=== PATIENT | male | born 1985 | race Caucasian/White ===

== ENCOUNTER 2020-10-16 16:55 | Emergency (ER) | payer MEDICAID ==
[2020-10-16] MEDS ORDERED: Sodium Chloride 0.9% 10 ML Syringe FLUSH PRN (17:21)
--- NOTE | 2020-10-16 17:48 | EDM.PDOCBH ---
ED HPI GENERAL MEDICAL PROBLEM - General Chief Complaint: Behavioral/Psych Stated Complaint: ANXIETY Time Seen by Provider: 10/16/20 17:01 Source of Information: Reports: Patient, RN Notes Reviewed History Limitations: Reports: No Limitations ( ) - History of Present Illness INITIAL COMMENTS - FREE TEXT/NARRATIVE: Patient is a 35-year-old male presenting to the emergency department for medical clearance to go to the [facility]. Patient mitts to a long history of drinking since age 10. States he drinks 18 beers and 3 shots daily. His last drink of 1 beer and 1 shot was about 4 hours ago. States is the only alcohol he is consumed today. Patient also has a history of methamphetamine and marijuana use. He last used marijuana yesterday and methamphetamine 2 days ago. He recently moved here from [place]. [facility] he has detoxed before but has never undergone treatment. He reports that he had a seizure 2 years ago when detoxing without medications. - Related Data Allergies Allergy/AdvReac Type Severity Reaction Status Date / Time bee pollen Allergy Severe Anaphylactic Verified 10/16/20 17:12 Shock Penicillins Allergy Severe Anaphylactic Verified 10/16/20 17:12 Shock Home Meds: Home Meds Fexofenadine [Evelia] 180 mg PO DAILY 10/16/20 [History] Fluticasone Propionate [Flonase Allergy Relief] 1 spray INH BID 10/16/20 [History] Omeprazole 20 mg PO DAILY 10/16/20 [History] clonazePAM [Clonazepam] 1 mg PO TID PRN 10/16/20 [History] Past Medical History Respiratory History: Reports: Other (See Below) Other Respiratory History: seasonal allergies Psychiatric History: Reports: Anxiety, Depression - Infectious Disease History Infectious Disease History: Reports: Hepatitis C Social & Family History - Tobacco Use Tobacco Use Status *Q: Never Tobacco User - Caffeine Use Caffeine Use: Reports: Coffee - Recreational Drug Use Recreational Drug Use: Yes Recreational Drug Type: Reports: Marijuana/Hashish, Methamphetamine ED ROS GENERAL - Review of Systems Review Of Systems: See Below Constitutional: Reports: No Symptoms HEENT: Reports: No Symptoms Respiratory: Reports: No Symptoms Cardiovascular: Reports: No Symptoms Endocrine: Reports: No Symptoms GI/Abdominal: Reports: No Symptoms : Reports: No Symptoms Musculoskeletal: Reports: No Symptoms Skin: Reports: No Symptoms Neurological: Reports: No Symptoms Psychiatric: Reports: Anxiety, Cravings Hematologic/Lymphatic: Reports: No Symptoms Immunologic: Reports: No Symptoms ED EXAM, BEHAVIORAL HEALTH - Physical Exam Exam: See Below General Appearance: Alert, WD/WN, No Apparent Distress Respiratory/Chest: No Respiratory Distress, Lungs Clear, Normal Breath Sounds, No Accessory Muscle Use, Chest Non-Tender Cardiovascular: Normal Peripheral Pulses, Regular Rate, Rhythm, No Edema, No Gallop, No JVD, No Murmur, No Rub GI/Abdominal: Normal Bowel Sounds, Soft, Non-Tender, No Organomegaly, No Distention, No Abnormal Bruit, No Mass Neurological: Alert, Normal Mood/Affect, CN II-XII Intact, Normal Cognition, Normal Gait, Normal Reflexes, No Motor/Sensory Deficits, Oriented x 3 Psychiatric: Alert, Normal Affect, Normal Cognition, Normal Mood, Oriented Skin Exam: Warm, Dry, Intact, Normal color, No rash COURSE, BEHAVIORAL HEALTH COMP - Course Vital Signs: Last Vital Signs Temp 96.5 F L 10/16/20 17:03 Pulse 95 10/16/20 17:03 Resp 20 10/16/20 17:03 BP 145/95 H 10/16/20 17:03 Pulse Ox 97 10/16/20 17:03 Orders, Labs, Meds: Laboratory Tests 10/16/20 10/16/20 10/16/20 Range/Units 17:23 17:36 17:36 WBC 6.37 (4.23-9.07) K/mm3 RBC 5.04 (4.63-6.08) M/mm3 Hgb 14.4 (13.7-17.5) gm/dl Hct 43.8 (40.1-51.0) % MCV 86.9 (79.0-92.2) fl MCH 28.6 (25.7-32.2) pg MCHC 32.9 (32.2-35.5) g/dl RDW Std Deviation 43.8 (35.1-43.9) fL Plt Count 243 (163-337) K/mm3 MPV 8.7 L (9.4-12.3) fl Neut % (Auto) 60.4 (34.0-67.9) % Lymph % (Auto) 27.8 (21.8-53.1) % Tyrrell % (Auto) 8.5 (5.3-12.2) % Eos % (Auto) 2.8 (0.8-7.0) Baso % (Auto) 0.3 (0.1-1.2) % Neut # (Auto) 3.85 (1.78-5.38) K/mm3 Lymph # (Auto) 1.77 (1.32-3.57) K/mm3 Tyrrell # (Auto) 0.54 (0.30-0.82) K/mm3 Eos # (Auto) 0.18 (0.04-0.54) K/mm3 Baso # (Auto) 0.02 (0.01-0.08) K/mm3 Sodium 139 (136-145) mEq/L Potassium 4.1 (3.5-5.1) mEq/L Chloride 103 (98-107) mEq/L Carbon Dioxide 26 (21-32) mEq/L Anion Gap 14.1 (5-15) BUN 10 (7-18) mg/dL Creatinine 1.0 (0.7-1.3) mg/dL Est Cr Clr Drug Dosing TNP Estimated GFR (MDRD) > 60 (>60) mL/min BUN/Creatinine Ratio 10.0 L (14-18) Glucose 98 (74-106) mg/dL Calcium 9.1 (8.5-10.1) mg/dL Total Bilirubin 0.5 (0.2-1.0) mg/dL AST 82 H (15-37) U/L ALT 146 H (16-63) U/L Alkaline Phosphatase 64 (46-116) U/L Troponin I < 0.017 (0.00-0.056) ng/mL C-Reactive Protein < 0.2 (<1.0) mg/dL Total Protein 7.9 (6.4-8.2) g/dl Albumin 4.1 (3.4-5.0) g/dl Globulin 3.8 gm/dL Albumin/Globulin Ratio 1.1 (1-2) Urine Opiates Screen Negative (YUWJNL=129) Ur Buprenorphine Scrn Negative (CUTOFF=10) Ur Oxycodone Screen Negative (OSL2OK=727) Urine Methadone Screen Negative (ZRO4NJ=091) Ur Propoxyphene Screen Negative (YZHPGS=033) Ur Barbiturates Screen Negative (VEWECK=570) Ur Tricyclics Screen Negative (DCOYMW=160) Ur Phencyclidine Scrn Negative (CUTOFF=25) Ur Amphetamine Screen Negative (RFRRPJ=172) U Methamphetamines Scrn Presumptive positive H (GNHAEE=764) U Benzodiazepines Scrn Negative (JGFTNP=399) U Cocaine Metab Screen Negative (CTFILH=071) U Marijuana (THC) Screen Presumptive positive H (CUTOFF=50) Ethyl Alcohol 0.18 (0.00) gm% Medications Discontinued Medications Generic Name Dose Route Start Last Admin Trade Name Freq PRN Reason Stop Dose Admin Sodium Chloride 10 ml 10/16/20 17:21 Saline Flush FLUSH ASDIRECTED PRN Keep Vein Open Medical Clearance: 10/16/20 18:26 Hematology was significant for blood alcohol elevated at 0.18, AST 82, ALT 146. Urine drug screen showed presumptive positive for methamphetamines and marijuana consistent with the patient's report. EKG showed no acute abnormalities. We will discharge him to the residential crisis center. I will write for him to take his clonazepam 1 mg every 8 hours scheduled for the next 3 days and then every 8 hours as needed thereafter. He does have this medication in his bag. Discharge instructions as documented. Departure - Departure Time of Disposition: 18:26 Disposition: Eloped 07 Condition: Good Clinical Impression: Alcohol abuse - Discharge Information *PRESCRIPTION DRUG MONITORING PROGRAM REVIEWED*: No *COPY OF PRESCRIPTION DRUG MONITORING REPORT IN PATIENT [id number]: No Instructions: Alcohol Use Disorder Referrals: PCP,None [Primary Care Provider] - Forms: ED Department Discharge Additional Instructions: You were seen in the emergency department today for evaluation for medical clearance to go to the residential crisis center. Blood work was completed. A blood alcohol was elevated at 0.18. Drug screen showed positive for methamphetamine and marijuana consistent with your report. Your liver enzymes were slightly elevated as well. You have been cleared to go to the residential crisis center. Recommend that you follow the treatment plan as set in place by them. We have written to schedule your clonazepam 1 mg every 8 hours for the next 3 days. You may be evaluated by psychiatrist after that time for ongoing management. Return to ER as needed. Sepsis Event Note (ED) - Evaluation Sepsis Screening Result: No Definite Risk
== END 2020-10-16 18:35 | disposition left against medical advice (07) ==
LOC: JD.ED 16:55
DX: F10.10 Alcohol abuse, uncomplicated (principal); Z79.899 Other long term (current) drug therapy; Z91.030 Bee allergy status; Z88.0 Allergy status to penicillin
CPT/HCPCS: 36415; 80053; 80306; 80307; 84484; 85025; 86140; 93005; 99283; 99284-25